=== PATIENT | female | born 1960 | race African-American/Black ===

== ENCOUNTER 2017-02-13 11:02 | Emergency (ER) | payer OTHER ==
[~2017-02-13] VITALS: Ht 162.6 cm; Wt 69.8 kg
[~2017-02-13 11:02] MED LIST: ASPIR 8181 MG PO; ATORVASTATIN CA40 M1 PO; COLACE100 MG PO; DEPAKOTE500 MG PO; FISH OIL1 CAP PO; FLUOXETINE20 M2 PO; LORAZEPAM1 MG PO; NORCO1 TA2 PO
[2017-02-13 14:29] VITALS: BP 119/55
== END 2017-02-13 14:30 | disposition home or self-care (01) ==
LOC: ED 11:02
DX: S93.602A Unspecified sprain of left foot, initial encounter (principal); X50.9XXA Other and unspecified overexertion or strenuous movements or postures, initial encounter; Y93.89 Activity, other specified; Y92.89 Other specified places as the place of occurrence of the external cause; Y99.8 Other external cause status; F41.9 Anxiety disorder, unspecified; I48.91 Unspecified atrial fibrillation
CPT/HCPCS: 99406